=== PATIENT | male | born 1965 | race African-American/Black ===

== ENCOUNTER 2017-06-23 20:01 | Emergency (ER) | payer MEDICAID ==
[2017-06-23 21:33] LABS: BASOPHILS 0.2 % (0-2); EOSINOPHILS 3.9 % (0-7); HEMATOCRIT 40.7 % (42.0-54.0); HEMOGLOBIN 13.4 g/dL (13.5-17.5); IMMATURE GRANULOCYTES 0.5 % (0-5); MCH 28.3 pg (26.0-34.0); MCHC 32.9 g/dL (31.0-37.0); MEAN PLATELET VOLUME 10.6 fL (7.4-10.4); MONOCYTES 7.8 % (2-11); NEUTROPHILS 63.6 % (40-80); PLATELET COUNT 158 10x3/uL (130-400); RBC 4.73 10x6/uL (4.20-6.10); RDW 12.9 % (11.5-14.5); WBC 5.6 10x3/uL (4.8-10.8)
[2017-06-23 21:44] LABS: ALBUMIN 3.2 g/dL (3.4-5.0); ANION GAP 11.4 mmol/L (8-16); CALCIUM 8.6 mg/dL (8.5-10.1); CARBON DIOXIDE 27.5 mmol/L (21.0-32.0); CREATININE - SERUM 1.1 mg/dL (0.6-1.3); POTASSIUM - SERUM 3.9 mmol/L (3.5-5.1)
[2017-06-23 22:03] LABS: BILIRUBIN - TOTAL 0.28 mg/dL (0.2-1.3); PROTEIN - SERUM 7.2 g/dL (6.4-8.2)
== END 2017-06-23 22:58 | disposition home or self-care (01) ==
LOC: D.ER 20:01
PROVIDERS: Nurse Practitioner Family
DX: I10 Essential (primary) hypertension (principal)

== ENCOUNTER 2017-10-28 15:20 | Emergency (ER) | payer MEDICAID ==
[2017-10-28 17:15] LABS: BASOPHILS 0.3 % (0-2); EOSINOPHILS 3.8 % (0-7); HEMATOCRIT 43.5 % (42.0-54.0); HEMOGLOBIN 14.1 g/dL (13.5-17.5); IMMATURE GRANULOCYTES 0.7 % (0-5); LYMPHOCYTES 25.7 % (15-50); MCH 28.1 pg (26.0-34.0); MCHC 32.4 g/dL (31.0-37.0); MCV 86.7 fL (80.0-100.0); MEAN PLATELET VOLUME 11.4 fL (7.4-10.4); MONOCYTES 6.6 % (2-11); NEUTROPHILS 62.9 % (40-80); PLATELET COUNT 162 10x3/uL (130-400); RBC 5.02 10x6/uL (4.20-6.10); RDW 13.4 % (11.5-14.5); WBC 5.8 10x3/uL (4.8-10.8)
[2017-10-28 17:36] LABS: ALBUMIN 3.3 g/dL (3.4-5.0); ANION GAP 12.6 mmol/L (8-16); BILIRUBIN - TOTAL 0.15 mg/dL (0.2-1.3); CALCIUM 8.7 mg/dL (8.5-10.1); CARBON DIOXIDE 26.6 mmol/L (21.0-32.0); CREATININE - SERUM 1.5 mg/dL (0.6-1.3); POTASSIUM - SERUM 4.2 mmol/L (3.5-5.1); PROTEIN - SERUM 7.4 g/dL (6.4-8.2)
== END 2017-10-28 18:55 | disposition home or self-care (01) ==
LOC: D.ER 15:20
PROVIDERS: Emergency Medicine
DX: Z91.14 Patient's other noncompliance with medication regimen (principal); I10 Essential (primary) hypertension; E66.9 Obesity, unspecified; R60.9 Edema, unspecified

== ENCOUNTER 2017-11-16 19:52 | Emergency (ER) | payer MEDICAID ==
[2017-11-16 21:23] LABS: ALBUMIN 3.5 g/dL (3.4-5.0); ANION GAP 15.8 mmol/L (8-16); BILIRUBIN - TOTAL 0.19 mg/dL (0.2-1.3); CALCIUM 8.8 mg/dL (8.5-10.1); CARBON DIOXIDE 25.5 mmol/L (21.0-32.0); CREATININE - SERUM 1.3 mg/dL (0.6-1.3); POTASSIUM - SERUM 4.3 mmol/L (3.5-5.1); PROTEIN - SERUM 7.7 g/dL (6.4-8.2)
== END 2017-11-16 21:53 | disposition home or self-care (01) ==
LOC: D.ER 19:52
PROVIDERS: Nurse Practitioner Family
DX: I10 Essential (primary) hypertension (principal); Z91.19 Patient's noncompliance with other medical treatment and regimen

== ENCOUNTER 2018-04-18 15:57 | Emergency (ER) | payer SELFPAY ==
[~2018-04-18] VITALS: Ht 188 cm; Wt 100.0 kg
[2018-04-18 16:15] VITALS: BP 166/92; Ht 188 cm; Wt 100.0 kg
[2018-04-18 16:43] LABS: BASOPHILS 0.3 % (0-2); EOSINOPHILS 2.4 % (0-7); HEMATOCRIT 43.9 % (42.0-54.0); HEMOGLOBIN 14.4 g/dL (13.5-17.5); IMMATURE GRANULOCYTES 0.7 % (0-5); LYMPHOCYTES 24.7 % (15-50); MCH 28.4 pg (26.0-34.0); MCHC 32.8 g/dL (31.0-37.0); MCV 86.6 fL (80.0-100.0); MEAN PLATELET VOLUME 11.2 fL (7.4-10.4); MONOCYTES 6.3 % (2-11); NEUTROPHILS 65.6 % (40-80); PLATELET COUNT 136 10x3/uL (130-400); RBC 5.07 10x6/uL (4.20-6.10); RDW 12.8 % (11.5-14.5); WBC 5.9 10x3/uL (4.8-10.8)
[2018-04-18 16:59] LABS: ALBUMIN 3.6 g/dL (3.4-5.0); ALKALINE PHOSPHATASE 86 U/L (46-116); ALT (SGPT) 35 U/L (10-68); BILIRUBIN - TOTAL 0.13 mg/dL (0.2-1.3); CALC OSMOLALITY 272 mosm/kg (275-300); CALCIUM 8.8 mg/dL (8.5-10.1); CARBON DIOXIDE 28.5 mmol/L (21.0-32.0); CHLORIDE - SERUM 101 mmol/L (98-107); CREATININE - SERUM 1.3 mg/dL (0.6-1.3); GLUCOSE 100 mg/dL (74-106); POTASSIUM - SERUM 4.3 mmol/L (3.5-5.1); SODIUM 136 mmol/L (136-145); UREA NITROGEN 15 mg/dL (7-18); eGFR NON AFRICAN AMERICAN 61 mL/min (90-120)
[2018-04-18 17:11] LABS: CREATINE KINASE 154 UL (21-232); PRO BNP 24 pg/mL (0-125); TROPONIN-I < 0.017 ng/mL (0.000-0.060)
== END 2018-04-18 17:16 | disposition left against medical advice (07) ==
LOC: D.ER 15:57
PROVIDERS: Family Medicine
DX: J06.9 Acute upper respiratory infection, unspecified (principal); R50.9 Fever, unspecified; I10 Essential (primary) hypertension

== ENCOUNTER 2018-04-18 17:55 | Emergency (ER) | payer SELFPAY ==
[~2018-04-18] VITALS: Ht 188 cm; Wt 102.3 kg
[2018-04-18 18:02] VITALS: Ht 188 cm; Wt 102.3 kg
[2018-04-18 20:15] LABS: BASOPHILS 0.5 % (0-2); EOSINOPHILS 2.3 % (0-7); HEMATOCRIT 44.7 % (42.0-54.0); HEMOGLOBIN 14.8 g/dL (13.5-17.5); IMMATURE GRANULOCYTES 0.9 % (0-5); LYMPHOCYTES 21.7 % (15-50); MCH 28.7 pg (26.0-34.0); MCHC 33.1 g/dL (31.0-37.0); MCV 86.6 fL (80.0-100.0); MEAN PLATELET VOLUME 11.4 fL (7.4-10.4); MONOCYTES 8.1 % (2-11); NEUTROPHILS 66.5 % (40-80); PLATELET COUNT 145 10x3/uL (130-400); RBC 5.16 10x6/uL (4.20-6.10); RDW 12.8 % (11.5-14.5); WBC 6.5 10x3/uL (4.8-10.8)
[2018-04-18 20:23] LABS: APTT 27.4 SECONDS (22.8-39.4); INR 1.12 (0.85-1.17)
[2018-04-18 20:31] LABS: ALBUMIN 3.6 g/dL (3.4-5.0); ALKALINE PHOSPHATASE 86 U/L (46-116); ALT (SGPT) 36 U/L (10-68); BILIRUBIN - TOTAL 0.23 mg/dL (0.2-1.3); CALC OSMOLALITY 274 mosm/kg (275-300); CARBON DIOXIDE 29.7 mmol/L (21.0-32.0); CHLORIDE - SERUM 101 mmol/L (98-107); CREATININE - SERUM 1.3 mg/dL (0.6-1.3); GLUCOSE 97 mg/dL (74-106); POTASSIUM - SERUM 4.6 mmol/L (3.5-5.1); SODIUM 137 mmol/L (136-145); UREA NITROGEN 14 mg/dL (7-18); eGFR NON AFRICAN AMERICAN 61 mL/min (90-120)
[2018-04-18 20:45] LABS: CKMB 0.9 U/L (0.0-3.6); CREATINE KINASE 157 UL (21-232); PRO BNP 27 pg/mL (0-125)
[2018-04-18 20:46] LABS: TROPONIN-I < 0.017 ng/mL (0.000-0.060)
[2018-04-18 21:41] VITALS: BP 172/92
== END 2018-04-18 21:41 | disposition home or self-care (01) ==
LOC: D.ER 17:55
PROVIDERS: Family Medicine
DX: J06.9 Acute upper respiratory infection, unspecified (principal); I10 Essential (primary) hypertension

== ENCOUNTER 2020-03-22 17:28 | Emergency (ER) | payer SELFPAY ==
[~2020-03-22] VITALS: Ht 188 cm; Wt 150.0 kg
[2020-03-22 17:41] VITALS: Ht 188 cm; Wt 150.0 kg
[2020-03-22] MEDS ORDERED: HTN MED? (17:42)
[2020-03-22] MEDS ORDERED: OMEPRAZOLE40 MG PO (19:47)
[2020-03-22] MEDS ORDERED: ERYTHROMYCIN OPT1 GM RIGHT EYE (19:47)
[2020-03-22 20:26] VITALS: BP 130/93
== END 2020-03-22 20:27 | disposition home or self-care (01) ==
LOC: D.ER 17:28
DX: S05.01XA Injury of conjunctiva and corneal abrasion without foreign body, right eye, initial encounter (principal); X58.XXXA Exposure to other specified factors, initial encounter; Z76.0 Encounter for issue of repeat prescription; I10 Essential (primary) hypertension

== ENCOUNTER 2020-03-27 15:48 | Emergency (ER) | payer SELFPAY ==
[~2020-03-27] VITALS: Ht 188 cm; Wt 149.7 kg
[~2020-03-27 15:48] MED LIST: ERYTHROMYCIN OPT1 GM RIGHT EYE; HTN MED?; OMEPRAZOLE40 MG PO
[2020-03-27 15:56] VITALS: Ht 188 cm; Wt 149.7 kg
[2020-03-27] MEDS ORDERED: [UNRECOGNIZED DRUG - REMARK] (15:58)
[2020-03-27 16:16] LABS: BILIRUBIN NEGATIVE (NEGATIVE); KETONE NEGATIVE (NEGATIVE); NITRITE NEGATIVE (NEGATIVE); UROBILINOGEN NORMAL (NORMAL)
[2020-03-27 16:17] LABS: BASOPHILS 0.4 % (0-2); EOSINOPHILS 3.3 % (0-7); HEMATOCRIT 46.2 % (42.0-54.0); HEMOGLOBIN 15.1 g/dL (13.5-17.5); IMMATURE GRANULOCYTES 0.4 % (0-5); LYMPHOCYTES 27.2 % (15-50); MCH 28.7 pg (26.0-34.0); MCHC 32.7 g/dL (31.0-37.0); MCV 87.7 fL (80.0-100.0); MEAN PLATELET VOLUME 10.8 fL (7.4-10.4); MONOCYTES 9.4 % (2-11); NEUTROPHILS 59.3 % (40-80); PLATELET COUNT 151 10x3/uL (130-400); RBC 5.27 10x6/uL (4.20-6.10); RDW 13.4 % (11.5-14.5); WBC 5.2 10x3/uL (4.8-10.8)
[2020-03-27 16:40] LABS: CALC OSMOLALITY 273 mosm/kg (275-300); CALCIUM 9.2 mg/dL (8.5-10.1); CARBON DIOXIDE 25.6 mmol/L (21.0-32.0); CHLORIDE - SERUM 103 mmol/L (98-107); CREATININE - SERUM 1.3 mg/dL (0.6-1.3); GLUCOSE 93 mg/dL (74-106); SODIUM 137 mmol/L (136-145); UREA NITROGEN 13 mg/dL (7-18); eGFR NON AFRICAN AMERICAN 61 mL/min (90-120)
[2020-03-27 16:50] LABS: ALBUMIN 3.8 g/dL (3.4-5.0); ALKALINE PHOSPHATASE 92 U/L (30-120); ALT (SGPT) 45 U/L (10-68); AMYLASE - SERUM 46 U/L (25-115); BILIRUBIN - TOTAL 0.43 mg/dL (0.2-1.3); LIPASE 119 U/L (73-393); PROTEIN - SERUM 7.8 g/dL (6.4-8.2)
[2020-03-27 16:51] LABS: TROPONIN-I < 0.017 ng/mL (0.000-0.060)
[2020-03-27 19:37] VITALS: BP 145/77
== END 2020-03-27 22:34 | disposition home or self-care (01) ==
LOC: D.ER 15:48
PROVIDERS: Family Medicine
DX: N28.89 Other specified disorders of kidney and ureter (principal); R10.9 Unspecified abdominal pain; I10 Essential (primary) hypertension